=== PATIENT | female | born 1970 | race Caucasian/White ===

== ENCOUNTER 2017-07-14 14:49 | Inpatient (IN) | payer OTHER ==
[~2017-07-14] VITALS: Ht 175.3 cm; Wt 76.1 kg
[2017-07-14 15:58] LABS: ALBUMIN 3.2 g/dL (3.4-5.0); ANION GAP 9 mmol/L (5-15); CALCIUM 8.9 mg/dL (8.5-10.1); CHLORIDE 101 mmol/L (98-107); CREATININE 1.56 mg/dL (0.55-1.02)
[2017-07-14 15:59] LABS: MEAN CORPUSCULAR HEMOGLOBIN 22.7 pg (27.0-34.8); MEAN CORPUSCULAR HGB CONC 32.3 g/dL (32.4-35.8); MEAN CORPUSCULAR VOLUME 70.4 fL (80-100); MEAN PLATELET VOLUME 8.1 fL (7.4-10.4); PLATELET COUNT 310 x10^3/uL (130-400); RED BLOOD COUNT 3.88 x10^6/uL (3.82-5.3); RED CELL DISTRIBUTION WIDTH 30.9 % (9.6-15.2)
[2017-07-14 16:28] LABS: BASOPHILS # (AUTO) 0.01 x10^3/uL (0-0.1); BASOPHILS % (AUTO) 0 % (0-1); EOSINOPHILS # (AUTO) 0.12 x10^3/uL (0-0.4); EOSINOPHILS % (AUTO) 2 % (1-7); LYMPHOCYTES # (AUTO) 1.07 x10^3/uL (1-3.4); LYMPHOCYTES % (AUTO) 14 % (22-44); MONOCYTES # (AUTO) 0.47 x10^3/uL (0.2-0.8); MONOCYTES % (AUTO) 6 % (2-9); NEUTROPHILS # (AUTO) 6.12 x10^3/uL (1.8-6.8); NEUTROPHILS % (AUTO) 79 % (42-75)
[2017-07-14 16:29] LABS: MD MORPH REVIEW ONLY
[2017-07-14 16:30] LABS: ANISOCYTOSIS 1+; HYPOCHROMIA 1+; MICROCYTOSIS 1+
[2017-07-14 16:31] LABS: OVALOCYTES 1+
[2017-07-14 16:32] LABS: <PLATELET ESTIMATE> ADEQUATE; LARGE PLATELETS 1+
[2017-07-14] MEDS ORDERED: FLUC150T2 PO (16:53)
[2017-07-14] MEDS ORDERED: LISI1TAB7 PO (16:54)
[2017-07-14] MEDS ORDERED: SULF-169 PO (16:56)
[2017-07-14] MEDS ORDERED: TRAM50TA2 PO (16:56)
[2017-07-14] MEDS ORDERED: DEXTROSE 4 GM TAB.CHEW PO PRN (17:30)
[2017-07-14] MEDS ORDERED: DEXTROSE 50%, 50ML SYRINGE IVPush PRN (17:30)
[2017-07-14] MEDS ORDERED: DOCUSATE 100 MG CAPSULE PO PRN (17:30)
[2017-07-14] MEDS ORDERED: VANCOMYCIN PER PHARMACY MC PRN ×2 (17:30)
[2017-07-14] MEDS ORDERED: PHARMACY MAY ADJ FOR RENAL FX MC PRN (17:30)
[2017-07-14] MEDS ORDERED: LABETALOL 5MG/ML, 20ML IVPush PRN (17:30)
[2017-07-14] MEDS ORDERED: ONDANSETRON ODT 4 MG PO PRN (17:30)
[2017-07-14] MEDS: INSULIN LISPRO 100 UNITS/ML, PEN SQ-INSULIN SCH ×2 (17:30→22:24)
[2017-07-14] MEDS: HEPARIN 5,000 UNITS/ML, 1ML SQ SCH (17:30)
[2017-07-14] MEDS ORDERED: GLUCAGON 1 MG IM PRN (17:30)
[2017-07-14] MEDS ORDERED: AMPICILLIN/SULBACTAM 3 GM in SODIUM CHLORIDE 0.9% 100 ML IV ONE (17:30)
[2017-07-14] MEDS: AMLODIPINE 5 MG TABLET PO SCH (17:30)
[2017-07-14 17:43] LABS: C-REACTIVE PROTEIN, QUANT 7.3 mg/dL (0.02-0.49)
[2017-07-14 17:56] LABS: HEMOGLOBIN A1C 11.5 % (4.2-6.3)
[2017-07-14] MEDS ORDERED: VANCOMYCIN 1,500 MG in SODIUM CHLORIDE 0.9% 250 ML IV ONE (18:00)
[2017-07-14 18:13] LABS: HCT (SEDRATE) 27.4 % (34.6-47.8)
[2017-07-14] MEDS: SODIUM CHLORIDE 0.9% 1,000 ML IV SCH ×2 (18:39→23:42)
[2017-07-14] MEDS ORDERED: PHARMACOKINETIC MONITORING MC PRN (19:30)
[2017-07-14] MEDS ORDERED: PHARMACOKINETIC CONSULTATION MC ONE (19:30)
[2017-07-14 19:44] VITALS: BP 182/96
[2017-07-14] MEDS ORDERED: VANCOMYCIN 1,400 MG in SODIUM CHLORIDE 0.9% 250 ML IV SCH (20:00)
[2017-07-14 21:00] VITALS: BP 152/84
[2017-07-14] MEDS: SODIUM CHLORIDE FLUSH 10ML SYR IVF SCH (21:40)
[2017-07-14] MEDS: AMPICILLIN/SULBACTAM 3 GM in SODIUM CHLORIDE 0.9% 100 ML IV SCH (21:40)
[2017-07-14 23:15] LABS: CHLORIDE,URINE RANDOM 134 mmol/L; POTASSIUM,URINE RANDOM 28 mmol/L; SODIUM,URINE RANDOM 120 mmol/L
[2017-07-14 23:28] LABS: CULTURE INDICATED? YES; MICROSCOPIC INDICATED
[2017-07-15] VITALS (7 sets, daily range): BP systolic 167–200; BP diastolic 81–103
[2017-07-15] MEDS: AMPICILLIN/SULBACTAM 3 GM in SODIUM CHLORIDE 0.9% 100 ML IV SCH ×4 (03:47→21:42)
[2017-07-15] MEDS: HEPARIN 5,000 UNITS/ML, 1ML SQ SCH ×3 (05:11→21:42)
[2017-07-15 06:34] LABS: ANION GAP 7 mmol/L (5-15); CALCIUM 8.7 mg/dL (8.5-10.1); CHLORIDE 107 mmol/L (98-107); CREATININE 1.11 mg/dL (0.55-1.02)
[2017-07-15 06:36] LABS: MEAN CORPUSCULAR HGB CONC 32.5 g/dL (32.4-35.8); MEAN CORPUSCULAR VOLUME 70.8 fL (80-100); MEAN PLATELET VOLUME 7.5 fL (7.4-10.4); PLATELET COUNT 301 x10^3/uL (130-400); RED BLOOD COUNT 3.45 x10^6/uL (3.82-5.3); RED CELL DISTRIBUTION WIDTH 30.5 % (9.6-15.2)
[2017-07-15] MEDS: ACETAMINOPHEN 325 MG TABLET PO PRN ×2 (06:56→16:03)
[2017-07-15 07:16] LABS: BASOPHILS # (AUTO) 0.02 x10^3/uL (0-0.1); BASOPHILS % (AUTO) 0 % (0-1); EOSINOPHILS # (AUTO) 0.14 x10^3/uL (0-0.4); EOSINOPHILS % (AUTO) 3 % (1-7); LYMPHOCYTES # (AUTO) 0.95 x10^3/uL (1-3.4); LYMPHOCYTES % (AUTO) 17 % (22-44); MD SCAN; MONOCYTES % (AUTO) 7 % (2-9); NEUTROPHILS # (AUTO) 3.98 x10^3/uL (1.8-6.8); NEUTROPHILS % (AUTO) 73 % (42-75)
[2017-07-15] MEDS: INSULIN LISPRO 100 UNITS/ML, PEN SQ-INSULIN SCH ×4 (07:47→21:41)
[2017-07-15] MEDS: SODIUM CHLORIDE FLUSH 10ML SYR IVF SCH ×2 (07:50→21:00)
[2017-07-15] MEDS: SODIUM CHLORIDE 0.9% 1,000 ML IV SCH ×2 (07:50→16:03)
[2017-07-15] MEDS: AMLODIPINE 5 MG TABLET PO SCH ×2 (07:51→20:34)
[2017-07-15] MEDS ORDERED: GADOBUTROL 10 MMOL/10 ML PFS ONE (13:02)
[2017-07-15] MEDS: VANCOMYCIN 1,400 MG in SODIUM CHLORIDE 0.9% 250 ML IV SCH (16:51)
[2017-07-15] MEDS: INSULIN GLARGINE 100 UNITS/ML, PEN SQ-INSULIN SCH (21:42)
[2017-07-16] MEDS: SODIUM CHLORIDE 0.9% 1,000 ML IV SCH (01:39)
[2017-07-16 02:26] VITALS: BP 170/80
[2017-07-16] MEDS: AMPICILLIN/SULBACTAM 3 GM in SODIUM CHLORIDE 0.9% 100 ML IV SCH ×4 (04:06→23:06)
[2017-07-16] MEDS: HEPARIN 5,000 UNITS/ML, 1ML SQ SCH ×3 (05:30→23:07)
[2017-07-16] MEDS: IRON SUCROSE COMPLEX 100MG/5ML IV SCH (08:41)
[2017-07-16] MEDS: AMLODIPINE 5 MG TABLET PO SCH ×2 (08:41→20:38)
[2017-07-16] MEDS: SODIUM CHLORIDE FLUSH 10ML SYR IVF SCH ×2 (08:41→20:38)
[2017-07-16] MEDS: INSULIN LISPRO 100 UNITS/ML, PEN SQ-INSULIN SCH ×4 (08:42→20:45)
[2017-07-16] MEDS: INSULIN GLARGINE 100 UNITS/ML, PEN SQ-INSULIN SCH ×2 (08:43→20:45)
[2017-07-16 09:18] LABS: ANION GAP 8 mmol/L (5-15); CALCIUM 7.8 mg/dL (8.5-10.1); CHLORIDE 108 mmol/L (98-107); CREATININE 0.85 mg/dL (0.55-1.02)
[2017-07-16 09:45] VITALS: BP 192/99
[2017-07-16] MEDS: ACETAMINOPHEN 325 MG TABLET PO PRN ×2 (10:04→23:06)
[2017-07-16] MEDS: LISINOPRIL 20 MG TABLET PO SCH (11:13)
[2017-07-16] MEDS: VANCOMYCIN 1,400 MG in SODIUM CHLORIDE 0.9% 250 ML IV SCH (11:56)
[2017-07-16 14:30] VITALS: BP 170/83
[2017-07-16 20:21] VITALS: BP 197/93
[2017-07-17 03:25] VITALS: BP 170/88
[2017-07-17] MEDS: HEPARIN 5,000 UNITS/ML, 1ML SQ SCH ×2 (05:08→13:30)
[2017-07-17] MEDS: AMPICILLIN/SULBACTAM 3 GM in SODIUM CHLORIDE 0.9% 100 ML IV SCH ×2 (05:08→11:26)
[2017-07-17] MEDS: VANCOMYCIN 1,400 MG in SODIUM CHLORIDE 0.9% 250 ML IV SCH (06:15)
[2017-07-17] MEDS: INSULIN LISPRO 100 UNITS/ML, PEN SQ-INSULIN SCH ×3 (07:00→16:00)
[2017-07-17 08:01] VITALS: BP 169/84
[2017-07-17] MEDS: AMLODIPINE 5 MG TABLET PO SCH (08:24)
[2017-07-17] MEDS: SODIUM CHLORIDE FLUSH 10ML SYR IVF SCH (08:24)
[2017-07-17] MEDS: LISINOPRIL 20 MG TABLET PO SCH (08:24)
[2017-07-17] MEDS: IRON SUCROSE COMPLEX 100MG/5ML IV SCH (08:24)
[2017-07-17] MEDS: INSULIN GLARGINE 100 UNITS/ML, PEN SQ-INSULIN SCH (08:25)
[2017-07-17] MEDS ORDERED: metFORMIN 850 MG TABLET PO SCH (09:00)
[2017-07-17] MEDS: ACETAMINOPHEN 325 MG TABLET PO PRN (10:29)
[2017-07-17 14:00] VITALS: BP 159/74
[2017-07-17] MEDS ORDERED: LISI-170 PO (14:19)
[2017-07-17] MEDS ORDERED: METF850T PO (14:19)
[2017-07-17] MEDS ORDERED: AMLO5TAB2 PO (14:19)
[2017-07-17] MEDS ORDERED: LINE600T37 PO (14:34)
[2017-07-17] MEDS ORDERED: FERR325T75 PO (16:09)
[2017-07-17] MEDS ORDERED: SULF1TAB24 PO (16:37)
== END 2017-07-17 21:33 | disposition home or self-care (01) | DRG 602 ==
LOC: ED 17:11 → EDIP 17:12 → 3NE 19:16
PROVIDERS: ADMIT Hospitalist; ATTEND Hospitalist
DX: L03.115 Cellulitis of right lower limb (principal); N17.0 Acute kidney failure with tubular necrosis; E44.0 Moderate protein-calorie malnutrition; L97.819 Non-pressure chronic ulcer of other part of right lower leg with unspecified severity; E87.1 Hypo-osmolality and hyponatremia; E11.622 Type 2 diabetes mellitus with other skin ulcer; E11.65 Type 2 diabetes mellitus with hyperglycemia; I16.0 Hypertensive urgency; D50.9 Iron deficiency anemia, unspecified; I10 Essential (primary) hypertension; Z16.29 Resistance to other single specified antibiotic; Z66 Do not resuscitate; Z79.4 Long term (current) use of insulin; Z91.14 Patient's other noncompliance with medication regimen
CPT/HCPCS: 36415; 76770; 80048; 80202; 81001; 82040; 82436; 82570; 82728; 82962; 83036; 83540; 83550; 84133; 84300; 84466; 85025; 85651; 86140; 87070; 87077; 87086; 87186; 87205; 93922; 99285; A9585; J0295; J1756; J3370; J1815; J7030; J7050

== ENCOUNTER → 2017-07-19 | Outpatient (CLI) | payer OTHER ==
[~2017-07-19] MED LIST: AMLO5TAB2 PO; FERR325T75 PO; FLUC150T2 PO; INSU100I13 SC; LINE600T37 PO; LISI-170 PO; LISI1TAB7 PO; METF850T PO; SULF-169 PO; SULF1TAB24 PO; TRAM50TA2 PO
== END | disposition home or self-care (01) ==
LOC: WOUND 09:58
PROVIDERS: ATTEND Internal Medicine
DX: E11.622 Type 2 diabetes mellitus with other skin ulcer (principal); L97.213 Non-pressure chronic ulcer of right calf with necrosis of muscle; D50.9 Iron deficiency anemia, unspecified; E11.22 Type 2 diabetes mellitus with diabetic chronic kidney disease; I12.9 Hypertensive chronic kidney disease with stage 1 through stage 4 chronic kidney disease, or unspecified chronic kidney disease; N18.2 Chronic kidney disease, stage 2 (mild)
CPT/HCPCS: 11043; 11046; 99215

== ENCOUNTER → 2017-07-26 | Outpatient (CLI) | payer OTHER ==
[~2017-07-26] MED LIST changes: +HEPARIN 5,000 UNITS/ML, 1ML ONE
== END | disposition home or self-care (01) ==
LOC: WOUND 13:57
PROVIDERS: ATTEND Internal Medicine
DX: E11.622 Type 2 diabetes mellitus with other skin ulcer (principal); L97.213 Non-pressure chronic ulcer of right calf with necrosis of muscle; D50.9 Iron deficiency anemia, unspecified; E11.22 Type 2 diabetes mellitus with diabetic chronic kidney disease; I12.9 Hypertensive chronic kidney disease with stage 1 through stage 4 chronic kidney disease, or unspecified chronic kidney disease; N18.2 Chronic kidney disease, stage 2 (mild); Z79.4 Long term (current) use of insulin
CPT/HCPCS: 97597; 97598

== ENCOUNTER → 2017-08-02 | Outpatient (CLI) | payer OTHER ==
[~2017-08-02] MED LIST changes: -HEPARIN 5,000 UNITS/ML, 1ML ONE
== END | disposition home or self-care (01) ==
LOC: WOUND 13:49
PROVIDERS: ATTEND Internal Medicine
DX: E11.622 Type 2 diabetes mellitus with other skin ulcer (principal); L97.213 Non-pressure chronic ulcer of right calf with necrosis of muscle; E11.65 Type 2 diabetes mellitus with hyperglycemia; E11.22 Type 2 diabetes mellitus with diabetic chronic kidney disease; I12.9 Hypertensive chronic kidney disease with stage 1 through stage 4 chronic kidney disease, or unspecified chronic kidney disease; N18.2 Chronic kidney disease, stage 2 (mild); E44.0 Moderate protein-calorie malnutrition; D50.9 Iron deficiency anemia, unspecified; Z79.4 Long term (current) use of insulin
CPT/HCPCS: 97597; 97598

== ENCOUNTER → 2017-08-23 | Outpatient (CLI) | payer OTHER | END | disposition home or self-care (01) | LOC: WOUND 08:26 | PROVIDERS: ATTEND Internal Medicine | DX: E11.622 Type 2 diabetes mellitus with other skin ulcer (principal); L97.213 Non-pressure chronic ulcer of right calf with necrosis of muscle; D50.9 Iron deficiency anemia, unspecified; E11.22 Type 2 diabetes mellitus with diabetic chronic kidney disease; I12.9 Hypertensive chronic kidney disease with stage 1 through stage 4 chronic kidney disease, or unspecified chronic kidney disease; N18.2 Chronic kidney disease, stage 2 (mild); Z79.4 Long term (current) use of insulin | CPT/HCPCS: 97597; 97598 ==

== ENCOUNTER → 2017-08-28 | Outpatient (CLI) | payer MEDICAID, OTHER | END | disposition home or self-care (01) | LOC: WOUND 08:00 | PROVIDERS: ATTEND Internal Medicine | DX: E11.622 Type 2 diabetes mellitus with other skin ulcer (principal); L97.213 Non-pressure chronic ulcer of right calf with necrosis of muscle; D50.9 Iron deficiency anemia, unspecified; E11.22 Type 2 diabetes mellitus with diabetic chronic kidney disease; I12.9 Hypertensive chronic kidney disease with stage 1 through stage 4 chronic kidney disease, or unspecified chronic kidney disease; N18.2 Chronic kidney disease, stage 2 (mild); Z79.4 Long term (current) use of insulin | CPT/HCPCS: 97597; 97598 ==

== ENCOUNTER → 2017-09-06 | Outpatient (CLI) | payer MEDICAID | END | disposition home or self-care (01) | LOC: WOUND 12:57 | PROVIDERS: ATTEND Internal Medicine | DX: E11.622 Type 2 diabetes mellitus with other skin ulcer (principal); L97.213 Non-pressure chronic ulcer of right calf with necrosis of muscle; D50.9 Iron deficiency anemia, unspecified; E11.22 Type 2 diabetes mellitus with diabetic chronic kidney disease; I12.9 Hypertensive chronic kidney disease with stage 1 through stage 4 chronic kidney disease, or unspecified chronic kidney disease; N18.2 Chronic kidney disease, stage 2 (mild); Z79.4 Long term (current) use of insulin; Z68.24 Body mass index [BMI] 24.0-24.9, adult | CPT/HCPCS: 97597 ==

== ENCOUNTER → 2017-09-13 | Outpatient (CLI) | payer MEDICAID | END | disposition home or self-care (01) | LOC: WOUND 10:55 | PROVIDERS: ATTEND Internal Medicine | DX: E11.622 Type 2 diabetes mellitus with other skin ulcer (principal); L97.213 Non-pressure chronic ulcer of right calf with necrosis of muscle; D50.9 Iron deficiency anemia, unspecified; E11.22 Type 2 diabetes mellitus with diabetic chronic kidney disease; I12.9 Hypertensive chronic kidney disease with stage 1 through stage 4 chronic kidney disease, or unspecified chronic kidney disease; N18.2 Chronic kidney disease, stage 2 (mild); Z79.4 Long term (current) use of insulin; Z68.24 Body mass index [BMI] 24.0-24.9, adult | CPT/HCPCS: 97597; 97598 ==

== ENCOUNTER → 2017-09-20 | Outpatient (CLI) | payer MEDICAID | END | disposition home or self-care (01) | LOC: WOUND 08:09 | PROVIDERS: ATTEND Internal Medicine | DX: E11.622 Type 2 diabetes mellitus with other skin ulcer (principal); L97.213 Non-pressure chronic ulcer of right calf with necrosis of muscle; E11.65 Type 2 diabetes mellitus with hyperglycemia; D50.9 Iron deficiency anemia, unspecified; E11.22 Type 2 diabetes mellitus with diabetic chronic kidney disease; I12.9 Hypertensive chronic kidney disease with stage 1 through stage 4 chronic kidney disease, or unspecified chronic kidney disease; N18.2 Chronic kidney disease, stage 2 (mild); Z79.4 Long term (current) use of insulin; Z68.24 Body mass index [BMI] 24.0-24.9, adult | CPT/HCPCS: 97597 ==

== ENCOUNTER → 2017-09-27 | Outpatient (CLI) | payer MEDICAID | END | disposition home or self-care (01) | LOC: WOUND 08:12 | PROVIDERS: ATTEND Internal Medicine | DX: E11.622 Type 2 diabetes mellitus with other skin ulcer (principal); L97.213 Non-pressure chronic ulcer of right calf with necrosis of muscle; E11.65 Type 2 diabetes mellitus with hyperglycemia; D50.9 Iron deficiency anemia, unspecified; E11.22 Type 2 diabetes mellitus with diabetic chronic kidney disease; I12.9 Hypertensive chronic kidney disease with stage 1 through stage 4 chronic kidney disease, or unspecified chronic kidney disease; N18.2 Chronic kidney disease, stage 2 (mild); Z79.4 Long term (current) use of insulin; Z68.24 Body mass index [BMI] 24.0-24.9, adult | CPT/HCPCS: 97597 ==

== ENCOUNTER → 2017-10-11 | Outpatient (CLI) | payer MEDICAID | END | disposition home or self-care (01) | LOC: WOUND 08:07 | PROVIDERS: ATTEND Internal Medicine | DX: E11.622 Type 2 diabetes mellitus with other skin ulcer (principal); L97.213 Non-pressure chronic ulcer of right calf with necrosis of muscle; I12.9 Hypertensive chronic kidney disease with stage 1 through stage 4 chronic kidney disease, or unspecified chronic kidney disease; E11.22 Type 2 diabetes mellitus with diabetic chronic kidney disease; N18.2 Chronic kidney disease, stage 2 (mild); E11.65 Type 2 diabetes mellitus with hyperglycemia; E66.8 Other obesity; D50.9 Iron deficiency anemia, unspecified; Z68.24 Body mass index [BMI] 24.0-24.9, adult; Z79.4 Long term (current) use of insulin | CPT/HCPCS: 97597; 97598 ==

== ENCOUNTER → 2017-10-16 | Outpatient (CLI) | payer MEDICAID | END | disposition home or self-care (01) | LOC: WOUND 10:56 | PROVIDERS: ATTEND Internal Medicine | DX: E11.622 Type 2 diabetes mellitus with other skin ulcer (principal); L97.213 Non-pressure chronic ulcer of right calf with necrosis of muscle; I12.9 Hypertensive chronic kidney disease with stage 1 through stage 4 chronic kidney disease, or unspecified chronic kidney disease; E11.22 Type 2 diabetes mellitus with diabetic chronic kidney disease; N18.2 Chronic kidney disease, stage 2 (mild); E11.65 Type 2 diabetes mellitus with hyperglycemia; E66.8 Other obesity; I10 Essential (primary) hypertension; D50.9 Iron deficiency anemia, unspecified; Z68.24 Body mass index [BMI] 24.0-24.9, adult; Z79.4 Long term (current) use of insulin | CPT/HCPCS: 11042; 11045 ==

== ENCOUNTER 2017-10-29 10:45 | Inpatient (IN) | payer MEDICAID ==
[~2017-10-29] VITALS: Ht 175.3 cm; Wt 73.9 kg
[~2017-10-29 10:45] MED LIST changes: -AMLO5TAB2 PO; +AMLO5TAB7 PO
[2017-10-29] MEDS ORDERED: MORPHINE SULFATE 4 MG/ML, 1ML IV PRN (11:30)
[2017-10-29] MEDS ORDERED: ONDANSETRON ODT 4 MG PO ONE (11:30)
[2017-10-29] MEDS ORDERED: SODIUM CHLORIDE 0.9% 1,000ML IVBOLUS ONE (11:30)
[2017-10-29] MEDS ORDERED: SODIUM CHLORIDE FLUSH 10ML SYR IVF ONE (11:30)
[2017-10-29] MEDS ORDERED: ONDANSETRON ODT 4 MG ONE (12:02)
[2017-10-29] MEDS ORDERED: MORPHINE SULFATE 4 MG/ML, 1ML ONE (12:03)
[2017-10-29 12:19] LABS: BASOPHILS # (AUTO) 0.02 x10^3/uL (0-0.1); BASOPHILS % (AUTO) 0 % (0-1); EOSINOPHILS # (AUTO) 0.13 x10^3/uL (0-0.4); EOSINOPHILS % (AUTO) 1 % (1-7); LYMPHOCYTES # (AUTO) 1.34 x10^3/uL (1-3.4); LYMPHOCYTES % (AUTO) 13 % (22-44); MD NO; MEAN CORPUSCULAR HEMOGLOBIN 28.7 pg (27.0-34.8); MEAN CORPUSCULAR HGB CONC 33.8 g/dL (32.4-35.8); MEAN CORPUSCULAR VOLUME 84.9 fL (80-100); MEAN PLATELET VOLUME 7.6 fL (7.4-10.4); MONOCYTES # (AUTO) 0.62 x10^3/uL (0.2-0.8); MONOCYTES % (AUTO) 6 % (2-9); NEUTROPHILS # (AUTO) 7.94 x10^3/uL (1.8-6.8); NEUTROPHILS % (AUTO) 79 % (42-75); PLATELET COUNT 359 x10^3/uL (130-400); RED BLOOD COUNT 3.89 x10^6/uL (3.82-5.3); RED CELL DISTRIBUTION WIDTH 13.7 % (9.6-15.2)
[2017-10-29 12:29] LABS: ALANINE AMINOTRANSFERASE 19 U/L (12-78); ALBUMIN 3.6 g/dL (3.4-5.0); ANION GAP 10 mmol/L (5-15); CALCIUM 9.4 mg/dL (8.5-10.1); CHLORIDE 104 mmol/L (98-107); CREATININE 3.17 mg/dL (0.55-1.02)
[2017-10-29 12:36] LABS: ALKALINE PHOSPHATASE 166 U/L (45-117); BILIRUBIN,TOTAL 0.3 mg/dL (0.2-1.0); TOTAL PROTEIN 9.2 g/dL (6.4-8.2)
[2017-10-29] MEDS ORDERED: SODIUM POLYSTYRENE SULFONATE ORAL SUSP PO ONE (13:30)
[2017-10-29] MEDS ORDERED: AMPICILLIN/SULBACTAM 3 GM in SODIUM CHLORIDE 0.9% 100 ML IV ONE (14:00)
[2017-10-29 15:28] LABS: INTERNATIONAL NORMALIZED RATIO 1.04 (0.93-1.1); PROTHROMBIN TIME 10.8 Seconds (9.6-11.5)
[2017-10-29] MEDS ORDERED: BISACODYL 10 MG SUPP PR PRN (15:30)
[2017-10-29] MEDS ORDERED: VANCOMYCIN PER PHARMACY MC PRN (15:30)
[2017-10-29] MEDS: PIPERACILLIN/TAZO 2.25 GM in SODIUM CHLORIDE 0.9% 50 ML IV SCH ×2 (15:30→21:30)
[2017-10-29] MEDS ORDERED: POLYETHYLENE GLYCOL 17 GM PACKET PO PRN (15:30)
[2017-10-29] MEDS ORDERED: ONDANSETRON 2MG/ML, 2ML IVPush PRN (15:30)
[2017-10-29] MEDS ORDERED: LABETALOL 5MG/ML, 20ML IVPush PRN (15:30)
[2017-10-29] MEDS ORDERED: PIPERACILLIN/TAZO/PMX 3.375GM 50 ML IV SCH (15:30)
[2017-10-29] MEDS ORDERED: DOCUSATE 100 MG CAPSULE PO PRN (15:30)
[2017-10-29 16:35] VITALS: BP 137/73
[2017-10-29] MEDS ORDERED: PHARMACOKINETIC MONITORING MC PRN (17:00)
[2017-10-29] MEDS ORDERED: VANCOMYCIN 1,400 MG in SODIUM CHLORIDE 0.9% 250 ML IV ONE (17:30)
[2017-10-29] MEDS: SODIUM CHLORIDE 0.9% 1,000 ML IV SCH (17:42)
[2017-10-29] MEDS: FERROUS SULFATE 325 MG TABLET PO SCH (17:42)
[2017-10-29] MEDS: INSULIN LISPRO 100 UNITS/ML, PEN SQ-INSULIN SCH ×2 (18:40→20:15)
[2017-10-29 19:50] VITALS: BP 160/72
[2017-10-29] MEDS: AMLODIPINE 5 MG TABLET PO SCH (20:15)
[2017-10-29] MEDS: ACETAMINOPHEN 325 MG TABLET PO PRN (20:16)
[2017-10-29] MEDS: INSULIN GLARGINE 100 UNITS/ML, PEN SQ-INSULIN SCH (20:28)
[2017-10-30 00:44] VITALS: BP 131/69
[2017-10-30] MEDS: PIPERACILLIN/TAZO 2.25 GM in SODIUM CHLORIDE 0.9% 50 ML IV SCH ×3 (03:30→15:30)
[2017-10-30] MEDS: SODIUM CHLORIDE 0.9% 1,000 ML IV SCH (04:35)
[2017-10-30] MEDS: ACETAMINOPHEN 325 MG TABLET PO PRN ×2 (04:35→09:58)
[2017-10-30 04:41] LABS: CULTURE INDICATED? NO; MICROSCOPIC AUTO
[2017-10-30] MEDS: INSULIN LISPRO 100 UNITS/ML, PEN SQ-INSULIN SCH ×3 (07:00→16:00)
[2017-10-30 07:09] VITALS: BP 139/77
[2017-10-30 08:02] LABS: ANION GAP 5 mmol/L (5-15); CALCIUM 8.6 mg/dL (8.5-10.1); CHLORIDE 110 mmol/L (98-107); CREATININE 1.88 mg/dL (0.55-1.02)
[2017-10-30] MEDS ORDERED: EPINEPHRINE 1 MG/ML, 1ML ONE (08:03)
[2017-10-30] MEDS ORDERED: BUPIVACAINE/PF 0.5% ONE (08:03)
[2017-10-30] MEDS ORDERED: FENTANYL PF 100 MCG/2ML IV PRN (08:30)
[2017-10-30] MEDS ORDERED: LABETALOL 5MG/ML, 20ML IV PRN (08:30)
[2017-10-30] MEDS ORDERED: MIDAZOLAM 1 MG/ML, 2ML IV PRN (08:30)
[2017-10-30] MEDS ORDERED: MEPERIDINE/PF 25MG/0.5ML IVPush PRN (08:30)
[2017-10-30] MEDS ORDERED: PROMETHAZINE 25 MG/ML, 1ML IV PRN (08:30)
[2017-10-30] MEDS ORDERED: HYDROmorphone 1 MG/ML, 1ML IV PRN (08:30)
[2017-10-30] MEDS ORDERED: hydrALAzine 20 MG/ML, 1ML IV PRN (08:30)
[2017-10-30] MEDS ORDERED: ACETAMINOPHEN 325 MG TABLET PO PRN (08:30)
[2017-10-30] MEDS ORDERED: OXYcodone 5 MG/5 ML ORAL.SOL UDC PO PRN (08:30)
[2017-10-30] MEDS ORDERED: ONDANSETRON ODT 8 MG PO PRN (08:30)
[2017-10-30 08:50] LABS: MEAN CORPUSCULAR HEMOGLOBIN 28.3 pg (27.0-34.8); MEAN CORPUSCULAR HGB CONC 33.5 g/dL (32.4-35.8); MEAN CORPUSCULAR VOLUME 84.3 fL (80-100); MEAN PLATELET VOLUME 7.4 fL (7.4-10.4); PLATELET COUNT 281 x10^3/uL (130-400); RED BLOOD COUNT 3.35 x10^6/uL (3.82-5.3); RED CELL DISTRIBUTION WIDTH 13.8 % (9.6-15.2)
[2017-10-30 08:52] LABS: BASOPHILS # (AUTO) 0.01 x10^3/uL (0-0.1); BASOPHILS % (AUTO) 0 % (0-1); EOSINOPHILS # (AUTO) 0.15 x10^3/uL (0-0.4); EOSINOPHILS % (AUTO) 2 % (1-7); LYMPHOCYTES # (AUTO) 1.28 x10^3/uL (1-3.4); LYMPHOCYTES % (AUTO) 21 % (22-44); MD SCAN; MONOCYTES # (AUTO) 0.67 x10^3/uL (0.2-0.8); MONOCYTES % (AUTO) 11 % (2-9); NEUTROPHILS # (AUTO) 4.09 x10^3/uL (1.8-6.8); NEUTROPHILS % (AUTO) 66 % (42-75)
[2017-10-30] MEDS: FERROUS SULFATE 325 MG TABLET PO SCH ×2 (09:19→16:59)
[2017-10-30] MEDS: AMLODIPINE 5 MG TABLET PO SCH (09:20)
[2017-10-30] MEDS: INSULIN GLARGINE 100 UNITS/ML, PEN SQ-INSULIN SCH (09:20)
[2017-10-30] MEDS ORDERED: GABA600T2 PO (12:04)
[2017-10-30] MEDS ORDERED: DULO30CA43 PO (12:04)
[2017-10-30 13:49] VITALS: BP 157/69
[2017-10-30] MEDS ORDERED: LEVO500T47 PO (15:19)
[2017-10-30] MEDS ORDERED: DOXY100T PO (15:20)
[2017-10-30] MEDS ORDERED: GABAPENTIN 300 MG CAPSULE PO SCH (16:00)
[2017-10-30 19:51] VITALS: BP 170/82
== END 2017-10-30 20:30 | disposition home or self-care (01) | DRG 602 ==
LOC: ED 12:54 → EDIP 13:43 → 4EST 16:28
PROVIDERS: ADMIT Hospitalist; ATTEND Hospitalist
DX: L88 Pyoderma gangrenosum (principal); N17.0 Acute kidney failure with tubular necrosis; L97.919 Non-pressure chronic ulcer of unspecified part of right lower leg with unspecified severity; E87.1 Hypo-osmolality and hyponatremia; E11.22 Type 2 diabetes mellitus with diabetic chronic kidney disease; L03.115 Cellulitis of right lower limb; E87.5 Hyperkalemia; I13.10 Hypertensive heart and chronic kidney disease without heart failure, with stage 1 through stage 4 chronic kidney disease, or unspecified chronic kidney disease; N18.9 Chronic kidney disease, unspecified; Z79.4 Long term (current) use of insulin; E86.0 Dehydration; E11.622 Type 2 diabetes mellitus with other skin ulcer; D50.9 Iron deficiency anemia, unspecified; E11.65 Type 2 diabetes mellitus with hyperglycemia
CPT/HCPCS: 36415; 80048; 80053; 81001; 82962; 83605; 84132; 85025; 85610; 85651; 86140; 87040; 93005; 96361; 96374; 96375; G0378; J0171; J0295; J3490; Q0162; J1815; J7030

== ENCOUNTER → 2017-11-01 | Outpatient (CLI) | payer MEDICAID ==
[~2017-11-01] MED LIST changes: +DOXY100T PO; +DULO30CA43 PO; +GABA600T2 PO; +LEVO500T47 PO
== END | disposition home or self-care (01) ==
LOC: WOUND 12:58
PROVIDERS: ATTEND Internal Medicine
DX: E11.622 Type 2 diabetes mellitus with other skin ulcer (principal); L97.213 Non-pressure chronic ulcer of right calf with necrosis of muscle; E11.65 Type 2 diabetes mellitus with hyperglycemia; E11.22 Type 2 diabetes mellitus with diabetic chronic kidney disease; I12.9 Hypertensive chronic kidney disease with stage 1 through stage 4 chronic kidney disease, or unspecified chronic kidney disease; N18.2 Chronic kidney disease, stage 2 (mild); D50.9 Iron deficiency anemia, unspecified; E66.8 Other obesity; Z68.24 Body mass index [BMI] 24.0-24.9, adult; Z79.4 Long term (current) use of insulin
CPT/HCPCS: 11042; 11045; 11100; 87070; 87077; 87186; 87205

== ENCOUNTER → 2017-11-08 | Outpatient (CLI) | payer MEDICAID | END | disposition home or self-care (01) | LOC: WOUND 10:07 | PROVIDERS: ATTEND Internal Medicine | DX: E11.622 Type 2 diabetes mellitus with other skin ulcer (principal); L97.213 Non-pressure chronic ulcer of right calf with necrosis of muscle; I10 Essential (primary) hypertension; D50.9 Iron deficiency anemia, unspecified; E11.65 Type 2 diabetes mellitus with hyperglycemia | CPT/HCPCS: 99214 ==

== ENCOUNTER → 2017-11-15 | Outpatient (CLI) | payer MEDICAID | END | disposition home or self-care (01) | LOC: WOUND 10:22 | PROVIDERS: ATTEND Internal Medicine Cardiovascular Disease | DX: E11.622 Type 2 diabetes mellitus with other skin ulcer (principal); L97.213 Non-pressure chronic ulcer of right calf with necrosis of muscle; I12.9 Hypertensive chronic kidney disease with stage 1 through stage 4 chronic kidney disease, or unspecified chronic kidney disease; E11.22 Type 2 diabetes mellitus with diabetic chronic kidney disease; N18.2 Chronic kidney disease, stage 2 (mild); E11.65 Type 2 diabetes mellitus with hyperglycemia; D50.9 Iron deficiency anemia, unspecified; E66.8 Other obesity; Z68.24 Body mass index [BMI] 24.0-24.9, adult; Z79.4 Long term (current) use of insulin | CPT/HCPCS: 99214 ==

== ENCOUNTER → 2017-11-22 | Outpatient (CLI) | payer MEDICAID | END | disposition home or self-care (01) | LOC: WOUND 09:13 | PROVIDERS: ATTEND Internal Medicine | DX: E11.622 Type 2 diabetes mellitus with other skin ulcer (principal); L97.213 Non-pressure chronic ulcer of right calf with necrosis of muscle; D50.9 Iron deficiency anemia, unspecified; E11.65 Type 2 diabetes mellitus with hyperglycemia; E11.52 Type 2 diabetes mellitus with diabetic peripheral angiopathy with gangrene; L88 Pyoderma gangrenosum; E11.22 Type 2 diabetes mellitus with diabetic chronic kidney disease; I12.9 Hypertensive chronic kidney disease with stage 1 through stage 4 chronic kidney disease, or unspecified chronic kidney disease; N18.2 Chronic kidney disease, stage 2 (mild); E66.8 Other obesity; Z68.24 Body mass index [BMI] 24.0-24.9, adult; Z79.4 Long term (current) use of insulin | CPT/HCPCS: 99214 ==

== ENCOUNTER → 2017-11-29 | Outpatient (CLI) | payer MEDICAID | END | disposition home or self-care (01) | LOC: WOUND 10:00 | PROVIDERS: ATTEND Internal Medicine | DX: E11.622 Type 2 diabetes mellitus with other skin ulcer (principal); L97.213 Non-pressure chronic ulcer of right calf with necrosis of muscle; E11.65 Type 2 diabetes mellitus with hyperglycemia; E11.52 Type 2 diabetes mellitus with diabetic peripheral angiopathy with gangrene; I96 Gangrene, not elsewhere classified; I13.10 Hypertensive heart and chronic kidney disease without heart failure, with stage 1 through stage 4 chronic kidney disease, or unspecified chronic kidney disease; E11.22 Type 2 diabetes mellitus with diabetic chronic kidney disease; N18.2 Chronic kidney disease, stage 2 (mild); D50.9 Iron deficiency anemia, unspecified; E66.8 Other obesity; Z68.24 Body mass index [BMI] 24.0-24.9, adult; Z79.4 Long term (current) use of insulin | CPT/HCPCS: 99214 ==

== ENCOUNTER → 2017-12-06 | Outpatient (CLI) | payer MEDICAID | END | disposition home or self-care (01) | LOC: WOUND 08:48 | PROVIDERS: ATTEND Internal Medicine | DX: E11.622 Type 2 diabetes mellitus with other skin ulcer (principal); L97.213 Non-pressure chronic ulcer of right calf with necrosis of muscle; I13.10 Hypertensive heart and chronic kidney disease without heart failure, with stage 1 through stage 4 chronic kidney disease, or unspecified chronic kidney disease; E11.22 Type 2 diabetes mellitus with diabetic chronic kidney disease; N18.2 Chronic kidney disease, stage 2 (mild); E11.65 Type 2 diabetes mellitus with hyperglycemia; E11.52 Type 2 diabetes mellitus with diabetic peripheral angiopathy with gangrene; I96 Gangrene, not elsewhere classified; D50.9 Iron deficiency anemia, unspecified; E66.8 Other obesity; Z68.24 Body mass index [BMI] 24.0-24.9, adult; Z79.4 Long term (current) use of insulin | CPT/HCPCS: 99214 ==

== ENCOUNTER → 2018-01-05 | Outpatient (CLI) | payer MEDICAID | END | disposition home or self-care (01) | LOC: WOUND 13:04 | PROVIDERS: ATTEND Internal Medicine | DX: E11.622 Type 2 diabetes mellitus with other skin ulcer (principal); E11.65 Type 2 diabetes mellitus with hyperglycemia; L97.813 Non-pressure chronic ulcer of other part of right lower leg with necrosis of muscle; E11.52 Type 2 diabetes mellitus with diabetic peripheral angiopathy with gangrene; L88 Pyoderma gangrenosum; I12.9 Hypertensive chronic kidney disease with stage 1 through stage 4 chronic kidney disease, or unspecified chronic kidney disease; E11.22 Type 2 diabetes mellitus with diabetic chronic kidney disease; N18.2 Chronic kidney disease, stage 2 (mild); D50.9 Iron deficiency anemia, unspecified; E66.8 Other obesity; Z68.24 Body mass index [BMI] 24.0-24.9, adult; Z79.4 Long term (current) use of insulin | CPT/HCPCS: 99214 ==

== ENCOUNTER → 2018-01-10 | Outpatient (CLI) | payer MEDICAID | END | disposition home or self-care (01) | LOC: WOUND 13:11 | PROVIDERS: ATTEND Internal Medicine | DX: E11.622 Type 2 diabetes mellitus with other skin ulcer (principal); L97.213 Non-pressure chronic ulcer of right calf with necrosis of muscle; E11.52 Type 2 diabetes mellitus with diabetic peripheral angiopathy with gangrene; E11.65 Type 2 diabetes mellitus with hyperglycemia; I12.9 Hypertensive chronic kidney disease with stage 1 through stage 4 chronic kidney disease, or unspecified chronic kidney disease; E11.22 Type 2 diabetes mellitus with diabetic chronic kidney disease; N18.2 Chronic kidney disease, stage 2 (mild); D50.9 Iron deficiency anemia, unspecified; L88 Pyoderma gangrenosum; Z79.4 Long term (current) use of insulin; E66.9 Obesity, unspecified; Z68.24 Body mass index [BMI] 24.0-24.9, adult | CPT/HCPCS: 99213 ==

== ENCOUNTER 2018-01-24 09:10 | Outpatient (CLI) | payer MEDICAID ==
[~2018-01-24 09:10] MED LIST changes: +AMLO-150 PO; -AMLO5TAB7 PO
== END 2018-01-31 10:19 | disposition home or self-care (01) ==
LOC: WOUND 09:10
PROVIDERS: ATTEND Internal Medicine
DX: E11.622 Type 2 diabetes mellitus with other skin ulcer (principal); L97.213 Non-pressure chronic ulcer of right calf with necrosis of muscle; L97.321 Non-pressure chronic ulcer of left ankle limited to breakdown of skin; D50.9 Iron deficiency anemia, unspecified; E11.52 Type 2 diabetes mellitus with diabetic peripheral angiopathy with gangrene; I96 Gangrene, not elsewhere classified; E11.65 Type 2 diabetes mellitus with hyperglycemia; I12.9 Hypertensive chronic kidney disease with stage 1 through stage 4 chronic kidney disease, or unspecified chronic kidney disease; E11.22 Type 2 diabetes mellitus with diabetic chronic kidney disease; N18.2 Chronic kidney disease, stage 2 (mild); E66.8 Other obesity; Z68.24 Body mass index [BMI] 24.0-24.9, adult; Z79.4 Long term (current) use of insulin
CPT/HCPCS: 99214

== ENCOUNTER → 2018-02-05 | Outpatient (CLI) | payer MEDICAID | END | disposition home or self-care (01) | LOC: WOUND 13:01 | PROVIDERS: ATTEND Internal Medicine | DX: E11.622 Type 2 diabetes mellitus with other skin ulcer (principal); L97.213 Non-pressure chronic ulcer of right calf with necrosis of muscle; E11.52 Type 2 diabetes mellitus with diabetic peripheral angiopathy with gangrene; I96 Gangrene, not elsewhere classified; E11.22 Type 2 diabetes mellitus with diabetic chronic kidney disease; I12.9 Hypertensive chronic kidney disease with stage 1 through stage 4 chronic kidney disease, or unspecified chronic kidney disease; N18.2 Chronic kidney disease, stage 2 (mild); E66.8 Other obesity; Z68.24 Body mass index [BMI] 24.0-24.9, adult; D50.9 Iron deficiency anemia, unspecified; Z79.4 Long term (current) use of insulin | CPT/HCPCS: 99214 ==

== ENCOUNTER → 2018-02-26 | Outpatient (CLI) | payer MEDICAID | END | disposition home or self-care (01) | LOC: WOUND 08:30 | PROVIDERS: ATTEND Internal Medicine | DX: E11.622 Type 2 diabetes mellitus with other skin ulcer (principal); L97.213 Non-pressure chronic ulcer of right calf with necrosis of muscle; E11.52 Type 2 diabetes mellitus with diabetic peripheral angiopathy with gangrene; I96 Gangrene, not elsewhere classified; E11.22 Type 2 diabetes mellitus with diabetic chronic kidney disease; I12.9 Hypertensive chronic kidney disease with stage 1 through stage 4 chronic kidney disease, or unspecified chronic kidney disease; N18.2 Chronic kidney disease, stage 2 (mild); E66.8 Other obesity; D50.9 Iron deficiency anemia, unspecified; Z68.24 Body mass index [BMI] 24.0-24.9, adult; Z79.4 Long term (current) use of insulin | CPT/HCPCS: 99214 ==

== ENCOUNTER → 2018-03-09 | Outpatient (CLI) | payer MEDICAID | END | disposition home or self-care (01) | LOC: CFH 09:26 | PROVIDERS: ATTEND Nurse Practitioner Family | DX: M25.412 Effusion, left shoulder (principal); M19.012 Primary osteoarthritis, left shoulder; M75.102 Unspecified rotator cuff tear or rupture of left shoulder, not specified as traumatic ==

== ENCOUNTER → 2018-03-26 | Outpatient (CLI) | payer MEDICAID ==
[~2018-03-26] MED LIST changes: -GABA600T2 PO; +GABA600T7 PO
== END | disposition home or self-care (01) ==
LOC: WOUND 09:55
PROVIDERS: ATTEND Internal Medicine
DX: E11.622 Type 2 diabetes mellitus with other skin ulcer (principal); L97.213 Non-pressure chronic ulcer of right calf with necrosis of muscle; E11.52 Type 2 diabetes mellitus with diabetic peripheral angiopathy with gangrene; I96 Gangrene, not elsewhere classified; E11.65 Type 2 diabetes mellitus with hyperglycemia; I12.9 Hypertensive chronic kidney disease with stage 1 through stage 4 chronic kidney disease, or unspecified chronic kidney disease; E11.22 Type 2 diabetes mellitus with diabetic chronic kidney disease; N18.2 Chronic kidney disease, stage 2 (mild); D50.9 Iron deficiency anemia, unspecified; M19.012 Primary osteoarthritis, left shoulder; E66.8 Other obesity; Z68.24 Body mass index [BMI] 24.0-24.9, adult; Z79.4 Long term (current) use of insulin
CPT/HCPCS: 99214

== ENCOUNTER 2018-04-18 10:00 | Outpatient (CLI) | payer MEDICAID | END 2018-04-18 23:59 | disposition home or self-care (01) | LOC: WOUND 10:00 | PROVIDERS: ATTEND Internal Medicine | DX: E11.622 Type 2 diabetes mellitus with other skin ulcer (principal); L97.213 Non-pressure chronic ulcer of right calf with necrosis of muscle; E11.65 Type 2 diabetes mellitus with hyperglycemia; D50.9 Iron deficiency anemia, unspecified; L88 Pyoderma gangrenosum | CPT/HCPCS: 99214 ==

== ENCOUNTER → 2018-05-16 | Outpatient (CLI) | payer MEDICAID | END | disposition home or self-care (01) | LOC: WOUND 14:24 | PROVIDERS: ATTEND Internal Medicine | DX: E11.622 Type 2 diabetes mellitus with other skin ulcer (principal); L97.213 Non-pressure chronic ulcer of right calf with necrosis of muscle; E11.65 Type 2 diabetes mellitus with hyperglycemia; D50.9 Iron deficiency anemia, unspecified; L88 Pyoderma gangrenosum; I10 Essential (primary) hypertension | CPT/HCPCS: 99214 ==

== ENCOUNTER → 2018-07-02 | Outpatient (CLI) | payer MEDICAID | END | disposition home or self-care (01) | LOC: WOUND 09:00 | PROVIDERS: ATTEND Internal Medicine | DX: E11.622 Type 2 diabetes mellitus with other skin ulcer (principal); L97.518 Non-pressure chronic ulcer of other part of right foot with other specified severity; E11.65 Type 2 diabetes mellitus with hyperglycemia; L88 Pyoderma gangrenosum; I10 Essential (primary) hypertension; D50.9 Iron deficiency anemia, unspecified | CPT/HCPCS: 99212 ==

== ENCOUNTER 2019-04-02 09:27 | Outpatient (CLI) | payer BC ==
[~2019-04-02 09:27] MED LIST changes: -DULO30CA43 PO; +DULO30CA44 PO; +LINE600T12 PO; -LINE600T37 PO; +LISI1TAB20 PO; -LISI1TAB7 PO
[2019-04-02] MEDS ORDERED: ATOR10TA9 PO (10:09)
[2019-04-02] MEDS ORDERED: OLME40TA12 PO (10:09)
[2019-04-02] MEDS ORDERED: CARV12.5 PO (10:09)
[2019-04-02] MEDS ORDERED: AMLO10TA8 PO (10:09)
[2019-04-02] MEDS ORDERED: FERR-46 PO (10:09)
[2019-04-02] MEDS ORDERED: SERT100T PO (10:09)
[2019-04-02] MEDS ORDERED: GABA300C10 PO (10:09)
[2019-04-02] MEDS ORDERED: INSU100I34 SC (10:12)
[2019-04-02] MEDS ORDERED: CHLO-101 PO (10:12)
[2019-04-02] MEDS ORDERED: NITR100C PO (10:12)
== END 2019-04-02 23:59 | disposition home or self-care (01) ==
LOC: STAR 09:27
PROVIDERS: ATTEND Obstetrics & Gynecology Female Pelvic Medicine and Reconstructive Surgery
DX: Z02.9 Encounter for administrative examinations, unspecified (principal)

== ENCOUNTER → 2019-05-28 | Outpatient (CLI) | payer BC ==
[~2019-05-28] MED LIST changes: +AMLO10TA8 PO; +ATOR10TA9 PO; +CARV12.5 PO; +CHLO-101 PO; +FERR-46 PO; +GABA300C10 PO; +INSU100I18 SC; +INSU100I34 SC; +NITR100C PO; +OLME40TA12 PO; +SERT100T PO
[2019-05-28 14:13] LABS: BASOPHILS # (AUTO) 0.02 x10^3/uL (0-0.1); BASOPHILS % (AUTO) 0 % (0-1); EOSINOPHILS # (AUTO) 0.29 x10^3/uL (0-0.4); EOSINOPHILS % (AUTO) 5 % (1-7); LYMPHOCYTES # (AUTO) 1.11 x10^3/uL (1-3.4); LYMPHOCYTES % (AUTO) 19 % (22-44); MD NO; MEAN CORPUSCULAR HGB CONC 33.2 g/dL (32.4-35.8); MEAN CORPUSCULAR VOLUME 84.5 fL (80-100); MEAN PLATELET VOLUME 7.9 fL (7.4-10.4); MONOCYTES # (AUTO) 0.52 x10^3/uL (0.2-0.8); MONOCYTES % (AUTO) 9 % (2-9); NEUTROPHILS % (AUTO) 67 % (42-75); PLATELET COUNT 227 x10^3/uL (130-400); RED CELL DISTRIBUTION WIDTH 18.5 % (9.6-15.2)
[2019-05-28 14:22] LABS: INTERNATIONAL NORMALIZED RATIO 0.92 (0.93-1.1); PROTHROMBIN TIME 9.7 Seconds (9.6-11.5)
[2019-05-28 14:24] LABS: ALANINE AMINOTRANSFERASE 17 U/L (12-78); ALBUMIN 3.7 g/dL (3.4-5.0); ANION GAP 6 mmol/L (5-15); CALCIUM 9.3 mg/dL (8.5-10.1); CHLORIDE 108 mmol/L (98-107)
[2019-05-28 14:27] LABS: ALKALINE PHOSPHATASE 127 U/L (45-117); TOTAL PROTEIN 8.1 g/dL (6.4-8.2)
[2019-05-28 14:48] LABS: BILIRUBIN,TOTAL 0.2 mg/dL (0.2-1.0)
== END | disposition home or self-care (01) ==
LOC: STAR 12:55
PROVIDERS: ATTEND Specialist
DX: Z01.818 Encounter for other preprocedural examination (principal); R97.1 Elevated cancer antigen 125 [CA 125]; N93.9 Abnormal uterine and vaginal bleeding, unspecified; R19.00 Intra-abdominal and pelvic swelling, mass and lump, unspecified site
CPT/HCPCS: 36415; 71046; 80053; 85025; 85610; 85730

== ENCOUNTER 2019-06-04 05:16 | Day surgery (SDC) | payer BC ==
[~2019-06-04] VITALS: Ht 175.3 cm; Wt 91.0 kg
[2019-06-04] MEDS ORDERED: LACTATED RINGERS 1,000 ML IV SCH (06:05)
[2019-06-04 06:06] VITALS: BP 186/95
[2019-06-04] MEDS ORDERED: CHLORHEXIDINE 15 ML UDC MM STA (06:11)
[2019-06-04 06:25] LABS: HCG UR SG 1.021 (1.003-1.030)
[2019-06-04] MEDS ORDERED: ACET-1600 PO (06:39)
[2019-06-04] MEDS ORDERED: MIDAZOLAM 1 MG/ML, 2ML ONE (06:40)
[2019-06-04] MEDS ORDERED: FENTANYL PF 250 MCG/5ML ONE ×2 (06:41→10:10)
[2019-06-04] MEDS ORDERED: KETOROLAC 30 MG/1 ML ONE (06:41)
[2019-06-04] MEDS ORDERED: DEXAMETHASONE 4 MG/ML, 1ML ONE ×2 (06:45→06:53)
[2019-06-04] MEDS ORDERED: PROPOFOL 10 MG/ML, 20ML ONE (06:45)
[2019-06-04] MEDS ORDERED: PHENYLEPHRINE 10 MG/ML ONE (06:45)
[2019-06-04] MEDS ORDERED: NEOSTIGMINE 1 MG/ML, 10ML ONE (06:45)
[2019-06-04] MEDS ORDERED: CEFAZOLIN 1,000 MG ONE (06:45)
[2019-06-04] MEDS ORDERED: GLYCOPYRROLATE 0.2MG/1ML, 5ML ONE (06:45)
[2019-06-04] MEDS ORDERED: ONDANSETRON 2MG/ML, 2ML ONE (06:45)
[2019-06-04] MEDS ORDERED: ROCURONIUM 10MG/ML,5ML ONE ×2 (06:45→08:06)
[2019-06-04] MEDS ORDERED: ACETAMINOPHEN 500 MG TABLET PO ONE (07:00)
[2019-06-04] MEDS ORDERED: SCOPOLAMINE 1MG PATCH TD SCH (07:00)
[2019-06-04] MEDS ORDERED: GABAPENTIN 300 MG CAPSULE PO ONE (07:00)
[2019-06-04] MEDS ORDERED: HEPARIN 1,000 UNITS/ML, 10ML ONE (07:18)
[2019-06-04] MEDS ORDERED: BUPIVACAINE/PF-EPI 0.25% 1:200K ONE (07:18)
[2019-06-04] MEDS ORDERED: MEPERIDINE/PF 25MG/ML,1ML IVPush PRN (07:30)
[2019-06-04] MEDS ORDERED: LABETALOL 5MG/ML, 20ML IV PRN (07:30)
[2019-06-04] MEDS ORDERED: hydrALAzine 20 MG/ML, 1ML IV PRN (07:30)
[2019-06-04] MEDS ORDERED: ACETAMINOPHEN 325 MG TABLET PO PRN (07:30)
[2019-06-04] MEDS ORDERED: OXYcodone 5 MG/5 ML ORAL.SOL UDC PO PRN (07:30)
[2019-06-04] MEDS ORDERED: PROMETHAZINE 25 MG/ML, 1ML IV PRN (07:30)
[2019-06-04] MEDS ORDERED: HALOPERIDOL 5 MG/ML IV PRN (07:30)
[2019-06-04] MEDS ORDERED: HYDROmorphone 1 MG/ML, 1ML INJ IVPush PRN (07:30)
[2019-06-04] MEDS ORDERED: MORPHINE SULFATE 4 MG/ML, 1ML IVPush PRN (07:30)
[2019-06-04] MEDS ORDERED: CEFOTETAN PMX 2GM/50ML 50 ML ONE (07:42)
[2019-06-04] MEDS ORDERED: CEFOTETAN PMX 2GM/50ML 50 ML IV ONE (08:00)
[2019-06-04] MEDS ORDERED: SUGAMMADEX 200 MG/2 ML IVPush ONE (10:48)
[2019-06-04] MEDS ORDERED: OXYcodone 5 MG/5 ML ORAL.SOL UDC ONE (11:43)
[2019-06-04] MEDS ORDERED: ACETAMINOPHEN 650 MG/20.3 ML UDC ONE (11:43)
[2019-06-04] MEDS ORDERED: FENTANYL PF 100 MCG/2ML ONE (11:43)
[2019-06-04] MEDS: FENTANYL PF 100 MCG/2ML IV PRN ×2 (11:49→12:01)
== END 2019-06-04 18:48 | disposition home or self-care (01) ==
LOC: OUT 05:16
PROVIDERS: ATTEND Specialist
DX: D25.1 Intramural leiomyoma of uterus (principal); D25.0 Submucous leiomyoma of uterus; N80.1 Endometriosis of ovary; N80.5 Endometriosis of intestine; E11.9 Type 2 diabetes mellitus without complications; I10 Essential (primary) hypertension; E78.5 Hyperlipidemia, unspecified; Z79.4 Long term (current) use of insulin; Z79.899 Other long term (current) drug therapy
CPT/HCPCS: 36415; 58554; 81025; 82962; 86850; 86900; 86923; 88304; 88307; 88329; 93005; J0690; J1100; J1885; J2250; J2370; J2405; J2704; J2710; J3010; J3490; J7120; S2900; J1644

== ENCOUNTER → 2019-07-16 | Outpatient (CLI) | payer BC ==
[~2019-07-16] MED LIST changes: +ACET-1600 PO; +REGADENOSON 0.4 MG/5 ML SYRINGE ONE
== END | disposition home or self-care (01) ==
LOC: CVU 10:31
PROVIDERS: ATTEND Internal Medicine Cardiovascular Disease
DX: I21.29 ST elevation (STEMI) myocardial infarction involving other sites (principal); I11.9 Hypertensive heart disease without heart failure
CPT/HCPCS: 78452; 93017; 93306; A9502; J2785

== ENCOUNTER 2020-03-20 09:39 | Emergency (ER) | payer BC ==
[~2020-03-20] VITALS: Ht 175.3 cm; Wt 95.3 kg
[~2020-03-20 09:39] MED LIST changes: +AMLO-211 PO; -AMLO10TA8 PO; -REGADENOSON 0.4 MG/5 ML SYRINGE ONE
[2020-03-20] MEDS ORDERED: MORPHINE SULFATE 4 MG/ML, 1ML IVPush PRN (10:30)
[2020-03-20] MEDS ORDERED: ONDANSETRON 2MG/ML, 2ML IVPush ONE (10:30)
--- NOTE | 2020-03-20 10:56 | NUR ---
Pt sitting up on gurney, aox4, on monitor w/ stable vitals. Pt reports nonhealing wound to RLL, treatment since Novemeber w/o improvement. Dressing noted to have scant purulent drainage, redness w/ mild induration noted periwound. Pt denies fever, worsening pain x 2 weeks. PIV placed, labs collected, will medicate for pain per MD orders. Xray complete, lab at bedside for second set of cultures.
[2020-03-20] MEDS ORDERED: CEFTRIAXONE PMX 1GM/50ML 50 ML IVPB ONE (11:00)
[2020-03-20] MEDS ORDERED: SODIUM CHLORIDE FLUSH 10ML SYR IVF ONE (11:00)
[2020-03-20] MEDS ORDERED: ONDANSETRON 2MG/ML, 2ML ONE (11:02)
[2020-03-20] MEDS ORDERED: CEFTRIAXONE PMX 1GM/50ML 50 ML ONE (11:02)
[2020-03-20] MEDS ORDERED: MORPHINE SULFATE 4 MG/ML, 1ML ONE (11:02)
--- NOTE | 2020-03-20 11:12 | NUR ---
Pt medicated for pain per MD orders, IV abx infusing, pt verbalizes pain improving. vitals stable. waiting for results.
[2020-03-20 11:38] LABS: BASOPHILS % (AUTO) 0 % (0-1); EOSINOPHILS % (AUTO) 3 % (1-7); LYMPHOCYTES % (AUTO) 14 % (22-44); MEAN CORPUSCULAR HEMOGLOBIN 28.8 pg (27.0-34.8); MEAN CORPUSCULAR HGB CONC 33.5 g/dL (32.4-35.8); MEAN PLATELET VOLUME 7.7 fL (7.4-10.4); MONOCYTES % (AUTO) 5 % (2-9); NEUTROPHILS % (AUTO) 78 % (42-75); PLATELET COUNT 271 x10^3/uL (130-400); RED BLOOD COUNT 4.14 x10^6/uL (3.82-5.3); RED CELL DISTRIBUTION WIDTH 14.2 % (9.6-15.2)
[2020-03-20 11:43] LABS: MD NO
[2020-03-20 11:51] LABS: ALBUMIN 4.2 g/dL (3.4-5.0); ANION GAP 8 mmol/L (5-15); CALCIUM 9.8 mg/dL (8.5-10.1); CHLORIDE 104 mmol/L (98-107)
[2020-03-20 11:52] LABS: CREATININE 1.45 mg/dL (0.55-1.02)
--- NOTE | 2020-03-20 11:58 | NUR ---
Vitals improved and stable, patient states pain has improved and is tolerable, wiating for results.
--- NOTE | 2020-03-20 13:33 | NUR ---
PIV removed, vitals stable, wound dressed, pt to d/c home. Education provided, verbalizes understanding, dresses self, ambulates to discharge desk with personal belongings and Rx/educational handouts.
[2020-03-20 13:34] VITALS: BP 145/77
== END 2020-03-20 13:37 | disposition home or self-care (01) ==
LOC: ED 10:34
DX: L03.115 Cellulitis of right lower limb (principal); I10 Essential (primary) hypertension; E11.9 Type 2 diabetes mellitus without complications
CPT/HCPCS: 36415; 73590; 80048; 82040; 83605; 85025; 87040; 96365; 96375; 99284; J0696; J2270; J2405